=== PATIENT | female | born 1965 | race Caucasian/White ===

== ENCOUNTER 2016-12-08 18:29 | Emergency (ER) | payer BC ==
[~2016-12-08] VITALS: Ht 157.5 cm; Wt 72.6 kg
[2016-12-08] MEDS ORDERED: PROAIR (18:41)
[2016-12-08] MEDS ORDERED: ADVAIR (18:41)
[2016-12-08] MEDS ORDERED: LEVOTHYROXINE (18:41)
[2016-12-08] MEDS ORDERED: LEVALBUTEROL (18:41)
[2016-12-08] MEDS ORDERED: BUSP15TA47 PO (18:41)
[2016-12-08] MEDS ORDERED: LEVO75TA4 PO (18:41)
[2016-12-08] MEDS ORDERED: methylPREDNISolone INJ 125 MG/2 ML VIAL (J2930) IM ONE (19:15)
[2016-12-08] MEDS ORDERED: IPRATROPIUM 0.5MG/ALBUTEROL 2.5MG INH SOL UD 3ML (DUONEB)(J7620) NEB ONE (19:15)
[2016-12-08] MEDS ORDERED: PRED20TA PO (20:16)
[2016-12-08] MEDS ORDERED: IPRASOL4 INH (20:16)
[2016-12-08 20:26] VITALS: BP 112/75
--- NOTE | 2016-12-09 08:50 | REP ---
CHEST PA AND LATERAL: 12/08/2016. CLINICAL HISTORY: Dyspnea. COMPARISON: No prior study. FINDINGS. The two-view show the lungs well inflated. There is no pleural effusion, lateral pleural thickening, apical scarring or pneumothorax. No dense consolidation. I see no cardiomegaly, vascular redistribution or pulmonary edema. No visible effusion or blunting of CP angles and the lateral chest wall without pleural thickening. The aorta and airway unremarkable. The bony thorax shows no focal lesion. No free air under the diaphragm. IMPRESSION: 1. No acute cardiopulmonary change. Signed by Leandro Sheppard MD 12/09/2016 08:42 A
== END 2016-12-08 20:29 | disposition home or self-care (01) ==
LOC: M ED 19:33
DX: J98.01 Acute bronchospasm (principal); F41.9 Anxiety disorder, unspecified; M54.9 Dorsalgia, unspecified; I44.7 Left bundle-branch block, unspecified; Z79.899 Other long term (current) drug therapy; Z88.0 Allergy status to penicillin
CPT/HCPCS: 71020; 94640; 96372; 99282; J2930

== ENCOUNTER 2016-12-21 10:16 | Emergency (ER) | payer BC ==
[~2016-12-21] VITALS: Ht 157.5 cm; Wt 73.9 kg
[~2016-12-21 10:16] MED LIST: ADVAIR; BUSP15TA47 PO; IPRASOL4 INH; LEVALBUTEROL; LEVO75TA4 PO; LEVOTHYROXINE; PRED20TA PO; PROAIR
[2016-12-21] MEDS ORDERED: BREO1INH3 INH (10:24)
[2016-12-21] MEDS ORDERED: ONDANSETRON 4MG/2ML VIAL (J2405) IV ONE (10:45)
[2016-12-21] MEDS ORDERED: MORPHINE 4 MG/ML 1ML SYRINGE IV PRN (10:45)
[2016-12-21] MEDS ORDERED: ROBA500T PO (11:24)
[2016-12-21] MEDS ORDERED: IBUPROFEN 400 MG TAB PO ONE (11:30)
[2016-12-21] MEDS ORDERED: METHOCARBAMOL 750 MG TAB PO ONE (11:30)
[2016-12-21 11:37] VITALS: BP 122/68
--- NOTE | 2016-12-21 11:40 | REP ---
LEFT FEMUR, FOUR VIEWS: HISTORY: Mid femur pain. There is no acute fracture or dislocation. The joint spaces are normal in appearance. IMPRESSION: There is no acute fracture or dislocation. Signed by Chase Oviedo MD 12/21/2016 11:45 A
== END 2016-12-21 11:58 | disposition home or self-care (01) ==
LOC: M ED 11:51
DX: S70.12XA Contusion of left thigh, initial encounter (principal); W19.XXXA Unspecified fall, initial encounter; Y92.9 Unspecified place or not applicable; Y93.55 Activity, bike riding; Y99.9 Unspecified external cause status; E03.9 Hypothyroidism, unspecified; J45.909 Unspecified asthma, uncomplicated; Z79.899 Other long term (current) drug therapy; Z88.0 Allergy status to penicillin

== ENCOUNTER → 2017-04-12 | Outpatient (CLI) | payer BC ==
[~2017-04-12] MED LIST changes: +BENEPOW7 PO; +BREO1INH3 INH; +COLA100C5 PO; +CVS20TAB PO; +HAIR1CAP2 PO; +LEXA5TAB13 PO; +METHACHOLINE KIT (J7674) INH ONE; +MUCI600T37 PO; +PROBCAP4 PO; +ROBA500T PO; +VITMTA PO; +ZYRT10CA PO
--- NOTE | 2017-04-12 10:26 | PFTRPT ---
Tech: Sharifa GELLER RRT Age: 52 Sex: Female Race: Height: 62.00 Inches Weight: 168.00 Lbs BSA: 1.77 Diagnosis: R05 METHACHOLINE CHALLENGE REPORT: ORDERING PROVIDER: Beck Sorto MD DATE OF SERVICE: 04/12/17 INTERPRETATION: The study was of excellent technical quality. Under protocol, methacholine was administered. Even after a maximal dose of 25 mg (188.875 CDUs) of methacholine , no provocation dose was ever achieved. IMPRESSION: Negative methacholine challenge study. MTDD
== END ==
LOC: M CARPUL 09:25
PROVIDERS: ATTEND Internal Medicine Pulmonary Disease
DX: R05 Cough (principal)
CPT/HCPCS: 94070; J7674

== ENCOUNTER 2017-05-10 09:13 | Outpatient (CLI) | payer BC ==
[~2017-05-10] VITALS: Ht 157.5 cm; Wt 72.6 kg
[~2017-05-10 09:13] MED LIST changes: -CVS20TAB PO; -METHACHOLINE KIT (J7674) INH ONE
[2017-05-10] MEDS ORDERED: NS 1,000 ML IV SCH (09:30)
[2017-05-10] MEDS ORDERED: CVS20TAB PO (09:56)
[2017-05-10] MEDS ORDERED: PROPOFOL 500 MG/50 ML VIAL As Ordered ONE (10:27)
[2017-05-10] MEDS ORDERED: LIDOCAINE 2% INJ 100 MG/5 ML SDV (FOR ANES.) As Ordered ONE (10:27)
--- NOTE | 2017-05-10 10:38 | ROOR ---
Patient Name: Oral Kothari Procedure Date: 05/10/2017 10:26 AM Date of : 1965 Age: 52 Room: [facility] Gender: Female Note Status: Finalized Procedure: Upper GI endoscopy Indications: Esophageal dysphagia, Heartburn Providers: Solo HAIRSTON MD Referring MD: Jessica YOON MD Requesting Provider: Medicines: Monitored Anesthesia Care Complications: No immediate complications. Procedure: Pre-Anesthesia Assessment: - The heart rate, respiratory rate, oxygen saturations, blood pressure, adequacy of pulmonary ventilation, and response to care were monitored throughout the procedure. The Endoscope was introduced through the mouth, and advanced to the second part of duodenum. The upper GI endoscopy was accomplished without difficulty. The patient tolerated the procedure well. Findings: The esophagus was normal. The stomach was normal. The examined duodenum was normal. No endoscopic abnormality was evident in the esophagus to explain the patient's complaint of dysphagia. This was biopsied with a cold forceps for evaluation of eosinophilic esophagitis. Impression: - Normal esophagus. - Normal stomach. - Normal examined duodenum. - No endoscopic esophageal abnormality to explain patient's dysphagia. Biopsied. Recommendation: - Await pathology results. - Use Prilosec (omeprazole) 40 mg PO BID for 3 months. - (the script was sent to your pharmacy on file) Solo Hairston MD Solo HAIRSTON MD 05/10/2017 10:38:34 AM This report has been signed electronically. Number of Addenda: 0 Note Initiated On: 05/10/2017 10:26 AM Estimated Blood Loss: Estimated blood loss: none.
--- NOTE | 2017-05-10 10:55 | ROOR ---
Patient Name: Oral Kothari Procedure Date: 05/10/2017 10:27 AM Date of : 1965 Age: 52 Room: [facility] Gender: Female Note Status: Finalized Procedure: Colonoscopy Indications: Screening for colorectal malignant neoplasm Providers: Solo HAIRSTON MD Referring MD: Jessica YOON MD Requesting Provider: Medicines: Monitored Anesthesia Care Complications: No immediate complications. Procedure: Pre-Anesthesia Assessment: - The heart rate, respiratory rate, oxygen saturations, blood pressure, adequacy of pulmonary ventilation, and response to care were monitored throughout the procedure. The Colonoscope was introduced through the anus and advanced to the cecum, identified by appendiceal orifice and ileocecal valve. The colonoscopy was performed without difficulty. The patient tolerated the procedure well. The quality of the bowel preparation was good. Findings: The perianal and digital rectal examinations were normal. A 4 mm polyp was found in the hepatic flexure. The polyp was sessile. The polyp was removed with a cold snare. Resection and retrieval were complete. Two flat polyps were found in the sigmoid colon. The polyps were 3 to 5 mm in size. These polyps were removed with a cold snare. Resection and retrieval were complete. The exam was otherwise without abnormality on direct and retroflexion views. Impression: - One 4 mm polyp at the hepatic flexure, removed with a cold snare. Resected and retrieved. - Two 3 to 5 mm polyps in the sigmoid colon, removed with a cold snare. Resected and retrieved. - The examination was otherwise normal on direct and retroflexion views. Recommendation: - Telephone endoscopist for pathology results in 2 weeks. - If the pathology report reveals adenomatous tissue, then repeat the colonoscopy for surveillance in 3 years. - If the pathology report indicates hyperplastic polyp, then repeat colonoscopy for screening purposes in 10 years. Solo Hairston MD Solo HAIRSTON MD 05/10/2017 10:54:18 AM This report has been signed electronically. Number of Addenda: 0 Note Initiated On: 05/10/2017 10:27 AM Estimated Blood Loss: Estimated blood loss: none.
[2017-05-10 11:10] VITALS: BP 113/69
== END 2017-05-10 11:18 | disposition home or self-care (01) ==
LOC: M OPP 09:13
PROVIDERS: ATTEND Internal Medicine Gastroenterology
DX: Z12.11 Encounter for screening for malignant neoplasm of colon (principal); D12.3 Benign neoplasm of transverse colon; D12.5 Benign neoplasm of sigmoid colon; R13.10 Dysphagia, unspecified; R12 Heartburn; I44.7 Left bundle-branch block, unspecified; E03.9 Hypothyroidism, unspecified; K57.30 Diverticulosis of large intestine without perforation or abscess without bleeding; K57.92 Diverticulitis of intestine, part unspecified, without perforation or abscess without bleeding; K21.9 Gastro-esophageal reflux disease without esophagitis; K59.00 Constipation, unspecified; M19.90 Unspecified osteoarthritis, unspecified site; M54.9 Dorsalgia, unspecified; L41.9 Parapsoriasis, unspecified; F41.9 Anxiety disorder, unspecified; J84.112 Idiopathic pulmonary fibrosis; G47.30 Sleep apnea, unspecified; J45.909 Unspecified asthma, uncomplicated; R06.83 Snoring; Z88.0 Allergy status to penicillin; Z79.899 Other long term (current) drug therapy; Z80.3 Family history of malignant neoplasm of breast; Z80.0 Family history of malignant neoplasm of digestive organs; Z80.52 Family history of malignant neoplasm of bladder

== ENCOUNTER 2017-11-04 06:27 | Emergency (ER) | payer BC ==
[2017-11-04 07:15] LABS: BASO % 0.5 % (0.0-1.0); EOS # 0.1 10^3/uL (0.0-0.50); EOS % 1.3 % (0.0-3.0); HEMATOCRIT 37.9 % (36.0-47.0); HEMOGLOBIN 12.3 g/dl (12.0-16.0); IMMATURE GRANULOCYTE % 0.4 % (0-3.0); LYMPH # 1.3 10^3/uL (1.5-4.5); LYMPH % 15.7 % (24.0-44.0); MEAN CORPUSCULAR HEMOGLOBIN 30.1 pg (27.0-33.0); MEAN CORPUSCULAR HGB CONC 32.5 g/dl (32.0-36.5); MEAN CORPUSCULAR VOLUME 92.9 fl (80.0-96.0); MONO # 0.7 10^3/uL (0.0-0.8); MONO % 8.7 % (0.0-5.0); NEUTROPHILS # 6.3 10^3/uL (1.8-7.7); NEUTROPHILS % 73.4 % (36.0-66.0); PLATELET COUNT, AUTOMATED 268 10^3/uL (150-450); RED BLOOD COUNT 4.08 10^6/uL (4.00-5.40); RED CELL DISTRIBUTION WIDTH 13.1 % (11.5-14.5); WHITE BLOOD COUNT 8.5 10^3/uL (4.0-10.0)
[2017-11-04 07:35] LABS: ANION GAP 6 MEQ/L (8-16); BLOOD UREA NITROGEN 14 MG/DL (7-18); CALCIUM LEVEL 8.9 MG/DL (8.5-10.1); CARBON DIOXIDE LEVEL 28 MEQ/L (21-32); CHLORIDE LEVEL 106 MEQ/L (98-107); CREATININE FOR GFR 0.78 MG/DL (0.55-1.30); GLOMERULAR FILTRATION RATE > 60.0 (>51); GLUCOSE, FASTING 94 MG/DL (70-100); POTASSIUM SERUM 4.2 MEQ/L (3.5-5.1); SODIUM LEVEL 140 MEQ/L (136-145)
[2017-11-04 07:39] LABS: LACTIC ACID SEPSIS PROTOCOL 1.7 MMOL/L (0.4-2.0)
[2017-11-04 09:50] LABS: SPECIFIC GRAVITY UR AUTO RFX 1.002 (1.002-1.035)
[2017-11-04 09:51] LABS: KETONE, URINE AUTO RFX NEGATIVE (NEGATIVE); LEUKOCYTE ESTERASE UR AUTO RFX NEGATIVE (NEGATIVE); NITRITE, URINE AUTO RFX NEGATIVE (NEGATIVE); RBC, URINE AUTO RFX 0 /HPF (0-3); WBC, URINE AUTO RFX 0 /HPF (0-3)
[2017-11-04 09:52] LABS: SQUAM EPITHELIAL CELL UR AURFX 0 /HPF (0-6)
== END 2017-11-04 09:22 | disposition home or self-care (01) ==
LOC: M ED 06:27
DX: K40.90 Unilateral inguinal hernia, without obstruction or gangrene, not specified as recurrent (principal); J45.909 Unspecified asthma, uncomplicated; G47.33 Obstructive sleep apnea (adult) (pediatric); K57.90 Diverticulosis of intestine, part unspecified, without perforation or abscess without bleeding; K21.9 Gastro-esophageal reflux disease without esophagitis; F41.9 Anxiety disorder, unspecified; E07.9 Disorder of thyroid, unspecified; K59.09 Other constipation; Z88.0 Allergy status to penicillin; Z79.899 Other long term (current) drug therapy
CPT/HCPCS: 76856

== ENCOUNTER → 2018-06-12 | Outpatient (REF) | payer BC ==
[2018-06-12 13:44] LABS: C REACTIVE PROTEIN QUANTITATIV 0.51 MG/DL (0.00-0.30)
== END ==
LOC: M LAB REF 13:27
DX: M79.601 Pain in right arm (principal)
CPT/HCPCS: 86140